=== PATIENT | female | born 1940 | race Two or more races ===

== ENCOUNTER 2017-11-09 11:30 | Inpatient (IN) | payer MEDICARE, OTHER ==
[~2017-11-09] VITALS: Ht 160 cm; Wt 58.8 kg
[2017-11-09 12:29] VITALS: BP 137/71
--- NOTE | 2017-11-09 13:29 | Emergency Room Report ---
History of Present Illness General Chief Complaint: Lower Extremity Injury Source: Patient, Medical Record, EMS ([facility]ing Femi ) Present Illness HPI This patient is brought in from a intermediate facility. I am unsure of the language that she speaks and there is very little history available. Per report , the patient fell and has pain in her hip. The patient has a history of CHF, hypertension, hypothyroid, hyperlipidemia. She is on warfarin. ([facility]) Allergies: Coded Allergies: No Known Allergies (Unverified , 11/09/17) Patient History Past Medical History: see triage record, HTN, RI, CAD, CHF, other - GERD Past Surgical History: pacemaker Social History: Denies: smoking, alcohol use, drug use Now: No Reviewed Nursing Documentation: PMH: Agreed; PSxH: Agreed (Ching Grover Femi PARISH) Nursing Documentation-PMH [facility]: [facility] Review of Systems All Other Systems: limited [facility] Physical Exam Vital Signs Date Time Temp Pulse Resp B/P (MAP) Pulse Ox O2 Delivery O2 Flow Rate FiO2 11/09/17 11:36 100.1 91 18 150/68 95 Room Air 100.0 Sp02 EP Interpretation: reviewed, normal General Appearance: no apparent distress, alert, GCS 15, non-toxic Head: normocephalic, atraumatic Eyes: bilateral eye normal inspection, bilateral eye PERRL ENT: hearing grossly normal, normal pharynx, no angioedema, normal voice Neck: full range of motion, supple/symm/no masses Respiratory: chest non-tender, lungs clear, normal breath sounds, no respiratory distress, no retraction, no accessory muscle use, speaking full sentences Cardiovascular #1: regular rate, rhythm, no edema Gastrointestinal: normal bowel sounds, non tender, soft, non-distended, no guarding, no rebound Rectal: deferred Musculoskeletal: other - unable to fully assess Neurologic: alert, oriented x3, responsive, motor strength/tone normal, sensory intact, speech normal Psychiatric: judgement/insight normal, memory normal, mood/affect normal, no suicidal/homicidal ideation Skin: normal color, no rash, warm/dry, well hydrated (Ching Grover Femi ) Medical Decision Making Diagnostic Impression: Primary Impression: Hip deformity Additional Impressions: Injury of lower extremity Fever Fall Warfarin-induced coagulopathy ER Course This patient presents from a intermediate facility for a fall and hip pain. On evaluation, the patient was found to have a low-grade fever. This was not reported. The patient is a poor historian and I am unable to get any significant history from her. I am concerned for a patient following and being anticoagulated on Coumadin. Patient is pending basic labs to include a CBC, CMP , urinalysis. She is also pending a head CT. Differential diagnosis includes urinary tract infection, bacteremia, viral syndrome, pneumonia, intracranial bleed. There is no evidence of hip fracture on plain films. The patient is turned over to Dr. Hassan for final disposition. Anticipate admission given the fall on Coumadin and low-grade fever. Pending (Ching Grover DO) ER Course Patient was seen by Dr. Alessia Grover and signed out to me for final disposition. I've also evaluated the patient. Please refer to her dictation for full history and physical. Patient apparently had a fall and complaining hip pain. X-rays show some chronic changes and patient's right hip and as well as chronic changes in the left hip. Case was discussed with Dr. Vel Noyola who came to the emergency department see the patient. Patient will be admitted to telemetry for further treatment. Patient was started on antibiotics because of the fever. Labs Test 11/09/17 15:15 11/09/17 16:15 Sodium Level 135 MMOL/L (136-145) Potassium Level 5.4 MMOL/L (3.5-5.1) Chloride Level 105 MMOL/L (98-107) Carbon Dioxide Level 25 MMOL/L (21-32) Anion Gap 5 mmol/L (5-15) Blood Urea Nitrogen 29 mg/dL (7-18) Creatinine 0.6 MG/DL (0.55-1.30) Estimat Glomerular Filtration Rate mL/min (>60) Glucose Level 85 MG/DL (74-106) Lactic Acid Level 0.70 mmol/L (0.4-2.0) Calcium Level 7.2 MG/DL (8.5-10.1) Total Bilirubin 0.7 MG/DL (0.2-1.0) Aspartate Amino Transf (AST/SGOT) 82 U/L (15-37) Alanine Aminotransferase (ALT/SGPT) 24 U/L (12-78) Alkaline Phosphatase 63 U/L (46-116) Total Creatine Kinase 289 U/L (26-308) Creatine Kinase MB 1.5 NG/ML (0.0-3.6) Creatine Kinase MB Relative Index 0.5 Troponin I 0.004 ng/mL (0.000-0.056) Total Protein 6.6 G/DL (6.4-8.2) Albumin 2.6 G/DL (3.4-5.0) Globulin 4.0 g/dL Albumin/Globulin Ratio 0.6 (1.0-2.7) White Blood Count 8.0 K/UL (4.8-10.8) Red Blood Count 4.24 M/UL (4.20-5.40) Hemoglobin 13.8 G/DL (12.0-16.0) Hematocrit 40.5 % (37.0-47.0) Mean Corpuscular Volume 96 FL (80-99) Mean Corpuscular Hemoglobin 32.5 PG (27.0-31.0) Mean Corpuscular Hemoglobin Concent 34.0 G/DL (32.0-36.0) Red Cell Distribution Width 11.1 % (11.6-14.8) Platelet Count 220 K/UL (150-450) Mean Platelet Volume 6.6 FL (6.5-10.1) Neutrophils (%) (Auto) 75.4 % (45.0-75.0) Lymphocytes (%) (Auto) 13.5 % (20.0-45.0) Monocytes (%) (Auto) 7.4 % (1.0-10.0) Eosinophils (%) (Auto) 2.5 % (0.0-3.0) Basophils (%) (Auto) 1.2 % (0.0-2.0) Prothrombin Time 27.1 SEC (9.30-11.50) Prothromb Time International Ratio 2.7 (0.9-1.1) Activated Partial Thromboplast Time 41 SEC (23-33) Urine Color Pale yellow Urine Appearance Clear Urine pH 7 (4.5-8.0) Urine Specific [place] 1.010 (1.005-1.035) Urine Protein Negative (NEGATIVE) Urine Glucose (UA) Negative (NEGATIVE) Urine Ketones Negative (NEGATIVE) Urine Blood 2+ (NEGATIVE) Urine Nitrite Negative (NEGATIVE) Urine Bilirubin Negative (NEGATIVE) Urine Urobilinogen Normal MG/DL (0.0-1.0) Urine Leukocyte Esterase Negative (NEGATIVE) Urine RBC 5-10 /HPF (0 - 2) Urine WBC 0-2 /HPF (0 - 2) Urine Squamous Epithelial Cells Many /LPF (NONE/OCC) Urine Bacteria Few /HPF (NONE) (Rajendra Hassan MD) EKG Diagnostic Results Rate: other - Paced Rhythm: other - Paced ST Segments: no acute changes ([facility]) Rhythm Strip Diag. Results EP Interpretation: yes Rate: 60 Rhythm: no ectopy, other - Paced ([facility]) Chest X-Ray Diagnostic Results Chest X-Ray Diagnostic Results : Chest X-Ray Ordered: Yes # of Views/Limited/Complete: 1 View Indication: Chest Pain EP Interpretation: Yes Interpretation: no consolidation, no effusion, no pneumothorax, no acute cardiopulmonary disease Impression: No acute disease Electronically Signed by: Claritza ([facility]) CT/MRI/US Diagnostic Results CT/MRI/US Diagnostic Results : Imaging Test Ordered: CT head Impression Pending. ([facility]) Last Vital Signs Date Time Temp Pulse Resp B/P (MAP) Pulse Ox O2 Delivery O2 Flow Rate FiO2 11/09/17 11:36 100.1 91 18 150/68 95 Room Air 100.0 ([facility]) Status: improved (Rajendra Hassan MD) Disposition: ADMITTED INPATIENT Condition: Serious Scripts Iscnisscpkou-Ihkc-Ekcloman,Iso (ZOSYN 3.375 GM PRE MIX-BAG) 3.375 Gm/50 Ml Froz.piggy 3.375 GM IVPB EVERY 8 HOURS for 7 Days, BAG Prov: Keith Noyola MD 11/12/17 Acetaminophen With Codeine 300MG/30MG (T#3)* (TYLENOL WITH CODEINE #3 TABLET*) Y Tab 2 TAB ORAL Q6H PRN for 30 Days, TAB Prov: Keith Noyola MD 11/12/17 [facility] Nov 09, 2017 13:29 Rajendra Hassan MD Nov 09, 2017 17:05
[2017-11-09] MEDS ORDERED: Cefepime HCl 1 GM in NS 55 ML IV SCH (13:30)
[2017-11-09 16:12] LABS: ANION GAP 5 mmol/L (5-15); BLOOD UREA NITROGEN 29 mg/dL (7-18); CALCIUM 7.2 MG/DL (8.5-10.1); CARBON DIOXIDE 25 MMOL/L (21-32); CHLORIDE 105 MMOL/L (98-107); CREATININE 0.6 MG/DL (0.55-1.30); POTASSIUM 5.4 MMOL/L (3.5-5.1); SODIUM 135 MMOL/L (136-145)
[2017-11-09 16:17] LABS: ALANINE AMINOTRANSFERASE 24 U/L (12-78); ALBUMIN 2.6 G/DL (3.4-5.0); ALBUMIN/GLOBULIN RATIO 0.6 (1.0-2.7); ALKALINE PHOSPHATASE 63 U/L (46-116); ASPARTATE AMINO TRANSFERASE 82 U/L (15-37); BILIRUBIN,TOTAL 0.7 MG/DL (0.2-1.0); CKMB 1.5 NG/ML (0.0-3.6); CREATINE KINASE 289 U/L (26-308)
[2017-11-09] MEDS ORDERED: DIGOXIN125 MCG ORAL (16:31)
[2017-11-09] MEDS ORDERED: BENADRYL25 MG ORAL (16:31)
[2017-11-09] MEDS ORDERED: LUMIGAN2.5 ML BOTH EYES (16:31)
[2017-11-09] MEDS ORDERED: POTASSIUM 25 M25 ME1 PO (16:31)
[2017-11-09] MEDS ORDERED: TRAMADOL HCL50 MG ORAL (16:31)
[2017-11-09] MEDS ORDERED: PREMARIN0.625 MG VAGIN (16:31)
[2017-11-09] MEDS ORDERED: ISTALOL2.5 M1 OP (16:31)
[2017-11-09] MEDS ORDERED: FUROSEMIDE40 MG ORAL (16:31)
[2017-11-09] MEDS ORDERED: CRESTOR10 M2 ORAL (16:31)
[2017-11-09] MEDS ORDERED: CALTRATE 600 +1 EAC2 PO (16:31)
[2017-11-09] MEDS ORDERED: DOK PLUS TABLE1 EACH PO (16:31)
[2017-11-09] MEDS ORDERED: GABAPENTIN300 MG ORAL (16:31)
[2017-11-09] MEDS ORDERED: FUROSEMIDE20 M1 ORAL (16:31)
[2017-11-09] MEDS ORDERED: NEXIUM40 MG ORAL (16:31)
[2017-11-09] MEDS ORDERED: LEVOTHYROXINE75 MCG ORAL (16:31)
[2017-11-09] MEDS ORDERED: VASCEPA1 GM PO (16:31)
[2017-11-09] MEDS ORDERED: AMLODIPINE BESYL5 MG ORAL (16:31)
[2017-11-09] MEDS ORDERED: FISH OIL CAP1000 MG ORAL (16:31)
[2017-11-09] MEDS ORDERED: WARFARIN SODIUM5 MG ORAL (16:31)
[2017-11-09] MEDS ORDERED: METOPROLOL SUCC50 MG ORAL (16:31)
[2017-11-09 16:38] LABS: APPEARANCE,URINE CLEAR; BILIRUBIN, URINE NEGATIVE (NEGATIVE); COLOR,URINE PALE YELLOW; GLUCOSE, URINE (UA) NEGATIVE (NEGATIVE); KETONES,URINE NEGATIVE (NEGATIVE); LEUKOCYTE ESTERASE ,URINE NEGATIVE (NEGATIVE); NITRITE,URINE NEGATIVE (NEGATIVE); PH,URINE 7 (4.5-8.0); PROTEIN,URINE NEGATIVE (NEGATIVE); UROBILINOGEN,URINE NORMAL MG/DL (0.0-1.0)
[2017-11-09 16:40] LABS: BASOPHILS % (AUTO) 1.2 % (0.0-2.0); EOSINOPHILS % (AUTO) 2.5 % (0.0-3.0); HEMATOCRIT 40.5 % (37.0-47.0); HEMOGLOBIN 13.8 G/DL (12.0-16.0); LYMPHOCYTES % (AUTO) 13.5 % (20.0-45.0); MEAN CORPUSCULAR VOLUME 96 FL (80-99); MONOCYTES % (AUTO) 7.4 % (1.0-10.0); NEUTROPHILS % (AUTO) 75.4 % (45.0-75.0); PLATELET COUNT 220 K/UL (150-450); RED BLOOD COUNT 4.24 M/UL (4.20-5.40); RED CELL DISTRIBUTION WIDTH 11.1 % (11.6-14.8)
[2017-11-09 16:45] LABS: INR 2.7 (0.9-1.1)
--- NOTE | 2017-11-09 16:59 | Diagnostic Imaging Report ---
Indication: Chest pain Technique: One view of the chest Comparison: none Findings: The heart is enlarged. There is questionably mild hazy opacity in the right mid and lower lung periphery, although this could be an artifact of overlying soft tissue. The pleural spaces are clear. Left chest unifocal pacemaker is noted. Metallic density projects over the left medial hemidiaphragm, of uncertain etiology/significance. There appears to be a gastrostomy. Impression: Questionable hazy right lateral basilar infiltrate. Cardiomegaly. Other findings as noted
--- NOTE | 2017-11-09 17:16 | Diagnostic Imaging Report ---
Indication: Fall, trauma, hip pain, inability to walk Technique: One view of the pelvis Comparison: Left hip radiograph of earlier the same day Findings: Again demonstrated is markedly abnormal left hip joint, with widened dysplastic acetabulum, severely narrowed joint space, markedly flattened and proliferative femoral head, extensive subchondral sclerosis and subchondral cyst formation. On the right, there is complete absence of the femoral head, with sharp margins of the femoral neck. The proximal femur rides well above the [place] acetabulum. The [place] acetabulum is very shallow and dysplastic in appearance. There is questionably a pseudoacetabulum. If this is in fact a pseudoacetabulum, the femoral neck is dislocated superiorly from it. No definite acute fractures. There are degenerative changes of the lumbosacral junction. The bones are osteoporotic. 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 There is a questionable pseudoacetabulum above the [place] acetabulum, but the femoral neck does not articulate with it. 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
--- NOTE | 2017-11-09 17:28 | Diagnostic Imaging Report ---
Indication: Reason For Exam: PAIN Technique: 3 views of the left ankle Comparison: none Findings: The bones are osteoporotic. No acute fractures. No dislocations. The joint spaces are preserved. Impression: No acute bony trauma Osteoporosis
--- NOTE | 2017-11-09 17:41 | Diagnostic Imaging Report ---
Indication: Left hip pain Technique: 2 views of the left hip Comparison: none Findings: There is severe contour abnormality of the left acetabulum and left hip. There is widening of the acetabulum and elevation of the left acetabular margin, marked flattening and proliferative change of the femoral head. There is near complete obliteration of the hip joint space. No definite acute fractures. No dislocations. Unusual ovoid density projects in the pelvis. Impression: No definite acute bony trauma Markedly abnormal left hip joint, as described. Suspect on the basis of prior avascular necrosis with secondary degenerative change and severe degenerative remodeling. Unusual ovoid density projecting within or over the pelvis, etiology/significance uncertain. Probably not sufficiently dense to be a bladder calculus. Could possibly represent a pessary although is higher than would be expected
--- NOTE | 2017-11-09 17:51 | Infectious Diseases Prog Note ---
Assessment/Plan Problems: (1) RLL pneumonia Assessment & Plan: with fever and infiltrates on CXR, will send sputum culture and start zosyn empirically (2) Left hip pain Assessment & Plan: due to severe DJD , continue pain meds (3) Fever Assessment & Plan: due to the above , continue antibiotics and tylenol Subjective Allergies: Coded Allergies: No Known Allergies (Unverified , 11/09/17) Objective Vital Signs Last 24 Hour Vital Signs Date Time Temp Pulse Resp B/P (MAP) Pulse Ox O2 Delivery O2 Flow Rate FiO2 11/09/17 14:20 97.9 97.9 11/09/17 12:29 97.9 60 16 137/71 95 Room Air 97.9 11/09/17 11:36 100.1 91 18 150/68 95 Room Air 100.0 Height (Feet): 5 Height (Inches): 3.00 Weight (Pounds): 180 Laboratory Tests Test 11/09/17 15:15 11/09/17 16:15 Sodium Level 135 MMOL/L (136-145) L Potassium Level 5.4 MMOL/L (3.5-5.1) H Chloride Level 105 MMOL/L (98-107) Carbon Dioxide Level 25 MMOL/L (21-32) Anion Gap 5 mmol/L (5-15) Blood Urea Nitrogen 29 mg/dL (7-18) H Creatinine 0.6 MG/DL (0.55-1.30) Estimat Glomerular Filtration Rate mL/min (>60) Glucose Level 85 MG/DL (74-106) Lactic Acid Level 0.70 mmol/L (0.4-2.0) Calcium Level 7.2 MG/DL (8.5-10.1) L Total Bilirubin 0.7 MG/DL (0.2-1.0) Aspartate Amino Transf (AST/SGOT) 82 U/L (15-37) H Alanine Aminotransferase (ALT/SGPT) 24 U/L (12-78) Alkaline Phosphatase 63 U/L (46-116) Total Creatine Kinase 289 U/L (26-308) Creatine Kinase MB 1.5 NG/ML (0.0-3.6) Creatine Kinase MB Relative Index 0.5 Troponin I 0.004 ng/mL (0.000-0.056) Total Protein 6.6 G/DL (6.4-8.2) Albumin 2.6 G/DL (3.4-5.0) L Globulin 4.0 g/dL Albumin/Globulin Ratio 0.6 (1.0-2.7) L White Blood Count 8.0 K/UL (4.8-10.8) Red Blood Count 4.24 M/UL (4.20-5.40) Hemoglobin 13.8 G/DL (12.0-16.0) Hematocrit 40.5 % (37.0-47.0) Mean Corpuscular Volume 96 FL (80-99) Mean Corpuscular Hemoglobin 32.5 PG (27.0-31.0) H Mean Corpuscular Hemoglobin Concent 34.0 G/DL (32.0-36.0) Red Cell Distribution Width 11.1 % (11.6-14.8) L Platelet Count 220 K/UL (150-450) Mean Platelet Volume 6.6 FL (6.5-10.1) Neutrophils (%) (Auto) 75.4 % (45.0-75.0) H Lymphocytes (%) (Auto) 13.5 % (20.0-45.0) L Monocytes (%) (Auto) 7.4 % (1.0-10.0) Eosinophils (%) (Auto) 2.5 % (0.0-3.0) Basophils (%) (Auto) 1.2 % (0.0-2.0) Prothrombin Time 27.1 SEC (9.30-11.50) H Prothromb Time International Ratio 2.7 (0.9-1.1) H Activated Partial Thromboplast Time 41 SEC (23-33) H Urine Color Pale yellow Urine Appearance Clear Urine pH 7 (4.5-8.0) Urine Specific [place] 1.010 (1.005-1.035) Urine Protein Negative (NEGATIVE) Urine Glucose (UA) Negative (NEGATIVE) Urine Ketones Negative (NEGATIVE) Urine Blood 2+ (NEGATIVE) H Urine Nitrite Negative (NEGATIVE) Urine Bilirubin Negative (NEGATIVE) Urine Urobilinogen Normal MG/DL (0.0-1.0) Urine Leukocyte Esterase Negative (NEGATIVE) Urine RBC 5-10 /HPF (0 - 2) H Urine WBC 0-2 /HPF (0 - 2) Urine Squamous Epithelial Cells Many /LPF (NONE/OCC) H Urine Bacteria Few /HPF (NONE) Current Medications Medications (Trade) Dose Ordered Sig/Jorge Luis Route PRN Reason Start Time Stop Time Status Last Admin Dose Admin Cefepime HCl 1 gm/ Sodium Chloride 55 ml @ 110 mls/hr Q12H IV 11/09/17 13:30 11/10/17 13:29 11/09/17 13:39 Ney Hall M.D. Nov 09, 2017 17:51
[2017-11-09] MEDS ORDERED: DOCUSATE SODIU250 MG ORAL (18:32)
[2017-11-09] MEDS ORDERED: GABAPENTIN100 MG ORAL (18:32)
[2017-11-09] MEDS ORDERED: MAGNESIUM OXID500 M1 PO (18:32)
[2017-11-09] MEDS ORDERED: WARFARIN SODIUM1 MG ORAL (18:32)
[2017-11-09] MEDS ORDERED: MYRBETRIQ25 MG PO (18:32)
[2017-11-09] MEDS ORDERED: CRESTOR10 M1 ORAL (18:32)
[2017-11-09] MEDS ORDERED: ACETAMINOPHEN500 M5 PO (18:32)
[2017-11-09] MEDS ORDERED: PREMARIN42.5 GM VG (18:32)
[2017-11-09] MEDS ORDERED: POTASSIUM CHLO20 ME3 PO (18:32)
[2017-11-09 19:00] VITALS: BP 149/66
[2017-11-09 20:00] VITALS: BP 145/78
[2017-11-09] MEDS: Piperacillin/Tazobactam 3.375 GM in D5W 110 ML IVPB SCH (22:11)
[2017-11-10] MEDS ORDERED: traMADol 50mg tab ORAL PRN (00:15)
[2017-11-10] MEDS ORDERED: Acetaminophen 500mg (ES) tab ORAL PRN (00:15)
[2017-11-10] MEDS: Piperacillin/Tazobactam 3.375 GM in D5W 110 ML IVPB SCH ×3 (06:41→22:07)
[2017-11-10 07:01] LABS: BASOPHILS % (AUTO) 1.3 % (0.0-2.0); EOSINOPHILS % (AUTO) 2.6 % (0.0-3.0); HEMATOCRIT 39.2 % (37.0-47.0); HEMOGLOBIN 13.1 G/DL (12.0-16.0); LYMPHOCYTES % (AUTO) 16.3 % (20.0-45.0); MEAN CORPUSCULAR VOLUME 93 FL (80-99); MONOCYTES % (AUTO) 9.2 % (1.0-10.0); NEUTROPHILS % (AUTO) 70.5 % (45.0-75.0); PLATELET COUNT 207 K/UL (150-450); RED BLOOD COUNT 4.24 M/UL (4.20-5.40); RED CELL DISTRIBUTION WIDTH 10.8 % (11.6-14.8); WHITE BLOOD COUNT 5.3 K/UL (4.8-10.8)
[2017-11-10 07:06] LABS: INR 2.8 (0.9-1.1)
[2017-11-10 07:27] LABS: ANION GAP 7 mmol/L (5-15); BLOOD UREA NITROGEN 22 mg/dL (7-18); CALCIUM 8.8 MG/DL (8.5-10.1); CARBON DIOXIDE 29 MMOL/L (21-32); CHLORIDE 101 MMOL/L (98-107); CREATININE 0.8 MG/DL (0.55-1.30); POTASSIUM 3.7 MMOL/L (3.5-5.1); SODIUM 137 MMOL/L (136-145)
[2017-11-10 08:00] VITALS: BP 138/62
[2017-11-10] MEDS ORDERED: WARFARIN SODIUM5 MG ORAL ×2 (08:21)
--- NOTE | 2017-11-10 08:22 | Consultation ---
Consult Note Consult Note 77 yo farsi speaking pt who, per history, fell at her nursing facility and complained of left hip pain. Pt seen in bed on her way to CT scan of hips/pelvis. hx gathered from chart and nursing staff. Pt does have pain in left hip upon palpation and demonstrated radiation of pain to left femur/leg. Xray reviewed: Rt hip prior Girdlestone procedure. left hip with significant abnormality, shallow acetabulum and flattened femoral head with marked degenerative changes. fx difficult to r/o Assessment/Plan Rec obtaining hip/pelvis CT. Being done now. Will follow up. Niki Blanc Nov 10, 2017 08:22
--- NOTE | 2017-11-10 08:29 | Diagnostic Imaging Report ---
Indication: Head pain, status post fall Technique: spiral acquisitions obtained through the brain. Angled axial and coronal 5 x 5 mm slices were reconstructed. No IV contrast utilized. Radiation dose was minimized using automated exposure control Total dose length product 1354.97 mGycm. CTDIvol(s) 70.38 mGy Comparison: none FINDINGS: No acute hemorrhage or edema. No mass effect or midline shift. There is age-related enlargement of the ventricles and extra axial CSF spaces. There is periventricular deep white matter ischemic change. Normal lin-white differentiation. There is evidence of prior bilateral cataract surgery. Visualized sinuses are unremarkable. Intact calvarium. IMPRESSION: Chronic and age-related changes. Negative for acute intracranial bleed or mass effect This agrees with the preliminary interpretation provided overnight by Dr. Paulson The CT scanner at [facility] is accredited by the [employer] and the scans are performed using protocols designed to limit radiation exposure to as low as reasonably achievable to attain images of sufficient resolution adequate for diagnostic evaluation
[2017-11-10] MEDS ORDERED: Warfarin Sodium 5mg ORAL SCH (09:00)
[2017-11-10] MEDS: Metoprolol Succinate XL 50mg tab ORAL SCH (09:00)
[2017-11-10] MEDS ORDERED: Warfarin Sodium 1mg ORAL SCH (09:00)
[2017-11-10] MEDS: Digoxin 0.125mg tab ORAL SCH ×2 (09:00→09:15)
[2017-11-10] MEDS: Atorvastatin 20mg tab ORAL SCH (09:14)
[2017-11-10] MEDS: Magnesium Oxide 400mg tab ORAL SCH (09:15)
[2017-11-10] MEDS: Furosemide 40mg tab ORAL SCH (09:15)
[2017-11-10] MEDS: Docusate 250mg cap ORAL SCH (09:15)
[2017-11-10] MEDS: Calcium Carbonate 500mg w/Vit D 200iu tab PO SCH (09:15)
[2017-11-10] MEDS: Timolol 0.5% Op Soln 2.5ml BOTH EYES SCH (09:27)
--- NOTE | 2017-11-10 09:52 | Diagnostic Imaging Report ---
Indication: Pelvic pain, difficulty walking, status post fall Technique: No IV contrast, per trauma protocol Spiral acquisitions obtained through the Multiplanar reconstructions were generated. Total dose length product 375.72 mGycm. CTDIvol(s) 15.42 mGy. Radiation dose was minimized using automated exposure control Comparison: Plain radiographs taken earlier the same day Findings: There is evidence of prior surgical resection of the femoral head. Resection margins of the femoral neck appear clean. The proximal femur is displaced nearly 6 cm cephalad to the normal acetabulum, as demonstrated on prior radiograph. It is also posteriorly displaced. The [place] acetabulum is very small and dysplastic, demonstrates irregularities that are probably sales representative aircraft of old subchondral cysts at the upper periphery. What was thought to possibly represent a pseudoacetabulum on the plain radiographs, just above the normal acetabulum, is not evident as such on this exam. There is a very unusual area of near absence of bone, with a very thin strip of bone through the center of it, in the upper iliac bone. This is not visible as such on the plain radiograph. The femoral neck is near to this, approximately 2 cm remote from the and slightly inferior to it, but does not appear to frankly articulate with it. The residual right femur is intact. No right-sided pelvic fracture demonstrated. There is proliferative soft tissue seen surrounding the femoral neck. There is mild thickening of the lateral gluteal musculature overlying the greater trochanter, which could represent a component of contusion. This is asymmetric compared to the contralateral side. There is atrophy of the bilateral buttock musculature which is asymmetric on the right. There is some increased attenuation of the musculature medial to the proximal femoral shaft which could also indicate contusion. As demonstrated on the prior radiograph, there is marked abnormality of the left hip joint. There is complete obliteration of the joint space, and subchondral sclerosis and subchondral cysts on both sides of the joint space. There is marked dysplasia of the acetabulum, which is widened to nearly twice width of a normal acetabulum, and the main negative femoral head is subluxed into the superior aspect of the remodeled acetabulum, with a significant portion subluxed outside the acetabulum. There is extensive bony proliferation, with extensive bone inferior to the femoral head articulating with the lower portion of the acetabulum. There is extensive degenerative osteophytes on both sides of the hip joint. No left femoral or left pelvic fracture demonstrated. The sacrum is intact. Sacroiliac joint spaces are preserved. There are degenerative changes of the lumbosacral junction. A pessary is located within the vagina. It appears to be malpositioned, as the stem bases inferiorly into the left parallel to the coronal plane rather than the sagittal plane, and the cup is oriented obliquely in the right side of the vaginal vault. Anterior edge of the pessary indents the bladder floor. The uterus is not visualized, presumed surgically absent. The remaining pelvic viscera are unremarkable. Impression: Evidence of prior right femoral Girdlestone type procedure, with marked cephalad displacement of the femoral neck. No right femoral or pelvic fracture is evident. Given the abnormal postsurgical anatomy, uncertain as to whether the current anatomic alignment is baseline for this patient or not. However, the surrounding soft tissues do not appear to be particularly distorted, so suspect that it is located in his baseline position. Unusual defect of the right iliac bone with a thin strip of bone filling the defect. Suspect that this represents postsurgical anatomy, although it is possible that this represents a pseudoacetabulum Markedly dysplastic right [place] acetabulum, as described. Thickening of the lateral and medial musculature overlying the femoral neck and proximal femur, could indicate contusion Markedly abnormal left femoral head and acetabulum. 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 Alternatively, given the presence of bone articulating within the more normally located inferior aspect of the acetabulum, this could represent an old healed slipped capital femoral epiphysis degenerative change or healed displaced femoral head fracture with secondary degenerative change. No evidence of acute bony trauma Pessary within the vaginal vault, appears malpositioned, corresponds to density described on recent plain radiograph Evidence of prior hysterectomy The CT scanner at [facility] is accredited by the [employer] and the scans are performed using protocols designed to limit radiation exposure to as low as reasonably achievable to attain images of sufficient resolution adequate for diagnostic evaluation.
[2017-11-10 12:00] VITALS: BP 142/71
--- NOTE | 2017-11-10 13:22 | Consultation ---
Consult Note Consult Note Ortho f/u CT scan reviewed. No fracture or acute bony trauma. No surgery needed. Rec pain control, PT Niki Blanc Nov 10, 2017 13:22
--- NOTE | 2017-11-10 13:33 | Cardiology Report ---
APPROVED REPORT EXAM: Two-dimensional and M-mode echocardiogram with Doppler and color Doppler. INDICATION Congestive Heart Failure M-Mode DIMENSIONS IVSd0.9 (0.7-1.1cm)Left Atrium (MM)3.9 (1.6-4.0cm) LVDd4.4 (3.5-5.6cm)Aortic Root3.0 (2.0-3.7cm) PWd1.0 (0.7-1.1cm)Aortic Cusp Exc.1.7 (1.5-2.0cm) IVSs1.2 cm LVDs3.0 (2.5-4.0cm) PWs1.6 cm Normal left ventricular chamber size,borderline normal systolic function and wall motion . Left ventricular ejection fraction estimated to be 50-55%. No evidence of left ventricular hypertrophy . No evidence of pericardial effusion. All other cardiac chamber sizes are within normal limits. Focal aortic valve sclerosis with adequate cusp excursion. Thickened mitral valve leaflets with normal excursion. Mitral annulus and aortic root calcification. Pulmonic valve not well visualized. Normal tricuspid valve structure. IVC at size 1.9cm with physiologic collapse. Pacemaker wire present in the right side chambers. A color flow and spectral Doppler study was performed and revealed: No aortic insufficiency . Mild mitral regurgitation. Mitral inflow velocities non diagnostic Mild tricuspid regurgitation. Tricuspid systolic velocities suggests peak right ventricular systolic pressure of 41mmHg,consistent with mild pulmonary hypertension .
--- NOTE | 2017-11-10 15:02 | Infectious Diseases Prog Note ---
Assessment/Plan Problems: (1) RLL pneumonia Assessment & Plan: with fever and infiltrates on CXR, await sputum culture , continue zosyn empirically for now (2) Left hip pain Assessment & Plan: due to severe DJD , continue pain meds , PT/OT eval (3) Fever Assessment & Plan: due to the above , continue antibiotics and tylenol Subjective Constitutional: Reports: no symptoms HEENT: Reports: no symptoms Respiratory: Reports: dry cough Breasts: Reports: no symptoms Cardiovascular: Reports: no symptoms Gastrointestinal/Abdominal: Reports: no symptoms Genitourinary: Reports: no symptoms Neurologic: Reports: no symptoms Psychiatric: Reports: no symptoms Skin: Reports: no symptoms Endocrine: Reports: no symptoms Hematologic: Reports: no symptoms Musculoskeletal: Reports: pain, stiffness Allergies: Coded Allergies: No Known Allergies (Unverified , 11/09/17) Subjective she is more awake and comfortable Objective Vital Signs Last 24 Hour Vital Signs Date Time Temp Pulse Resp B/P (MAP) Pulse Ox O2 Delivery O2 Flow Rate FiO2 11/10/17 12:00 61 11/10/17 09:15 60 138/62 11/10/17 09:00 59 11/10/17 09:00 Room Air 11/10/17 08:00 97.5 60 19 138/62 (87) 93 97.5 11/10/17 08:00 60 11/10/17 04:00 61 11/10/17 00:00 60 11/09/17 20:00 96.1 61 18 145/78 (100) 93 96.1 11/09/17 20:00 Room Air 11/09/17 20:00 60 11/09/17 19:00 97.5 60 16 149/66 97 Room Air 11/09/17 19:00 97.5 60 16 149/66 97 Room Air 97.5 Height (Feet): 5 Height (Inches): 3.00 Weight (Pounds): 129 General Appearance: WD/WN, no acute distress HEENT: normocephalic, atraumatic, anicteric, mucous membranes moist, PERRL Respiratory/Chest: chest wall non-tender, lungs clear, normal breath sounds, no respiratory distress, no accessory muscle use Cardiovascular: normal peripheral pulses, normal rate, regular rhythm, no gallop/murmur, no JVD Abdomen: normal bowel sounds, soft, non tender, no organomegaly, non distended , no mass, no scars Genitourinary: normal external genitalia Extremities: no cyanosis, no clubbing Skin: no rash, no lesions, no ulcers Neurologic/Psychiatric: alert, oriented x 3, responsive Lymphatic: no neck adenopathy, no groin adenopathy Musculoskeletal: other - left hip and leg pain Microbiology Date/Time Source Procedure Growth Status 11/09/17 23:30 Rectum Received Laboratory Tests Test 11/09/17 15:15 11/09/17 16:15 11/10/17 06:20 Sodium Level 135 MMOL/L (136-145) L 137 MMOL/L (136-145) Potassium Level 5.4 MMOL/L (3.5-5.1) H 3.7 MMOL/L (3.5-5.1) Chloride Level 105 MMOL/L (98-107) 101 MMOL/L (98-107) Carbon Dioxide Level 25 MMOL/L (21-32) 29 MMOL/L (21-32) Anion Gap 5 mmol/L (5-15) 7 mmol/L (5-15) Blood Urea Nitrogen 29 mg/dL (7-18) H 22 mg/dL (7-18) H Creatinine 0.6 MG/DL (0.55-1.30) 0.8 MG/DL (0.55-1.30) Estimat Glomerular Filtration Rate mL/min (>60) mL/min (>60) Glucose Level 85 MG/DL (74-106) 89 MG/DL (74-106) Lactic Acid Level 0.70 mmol/L (0.4-2.0) Calcium Level 7.2 MG/DL (8.5-10.1) L 8.8 MG/DL (8.5-10.1) # Total Bilirubin 0.7 MG/DL (0.2-1.0) Aspartate Amino Transf (AST/SGOT) 82 U/L (15-37) H Alanine Aminotransferase (ALT/SGPT) 24 U/L (12-78) Alkaline Phosphatase 63 U/L (46-116) Total Creatine Kinase 289 U/L (26-308) Creatine Kinase MB 1.5 NG/ML (0.0-3.6) Creatine Kinase MB Relative Index 0.5 Troponin I 0.004 ng/mL (0.000-0.056) Total Protein 6.6 G/DL (6.4-8.2) Albumin 2.6 G/DL (3.4-5.0) L Globulin 4.0 g/dL Albumin/Globulin Ratio 0.6 (1.0-2.7) L White Blood Count 8.0 K/UL (4.8-10.8) 5.3 K/UL (4.8-10.8) Red Blood Count 4.24 M/UL (4.20-5.40) 4.24 M/UL (4.20-5.40) Hemoglobin 13.8 G/DL (12.0-16.0) 13.1 G/DL (12.0-16.0) Hematocrit 40.5 % (37.0-47.0) 39.2 % (37.0-47.0) Mean Corpuscular Volume 96 FL (80-99) 93 FL (80-99) Mean Corpuscular Hemoglobin 32.5 PG (27.0-31.0) H 30.9 PG (27.0-31.0) Mean Corpuscular Hemoglobin Concent 34.0 G/DL (32.0-36.0) 33.4 G/DL (32.0-36.0) Red Cell Distribution Width 11.1 % (11.6-14.8) L 10.8 % (11.6-14.8) L Platelet Count 220 K/UL (150-450) 207 K/UL (150-450) Mean Platelet Volume 6.6 FL (6.5-10.1) 7.5 FL (6.5-10.1) Neutrophils (%) (Auto) 75.4 % (45.0-75.0) H 70.5 % (45.0-75.0) Lymphocytes (%) (Auto) 13.5 % (20.0-45.0) L 16.3 % (20.0-45.0) L Monocytes (%) (Auto) 7.4 % (1.0-10.0) 9.2 % (1.0-10.0) Eosinophils (%) (Auto) 2.5 % (0.0-3.0) 2.6 % (0.0-3.0) Basophils (%) (Auto) 1.2 % (0.0-2.0) 1.3 % (0.0-2.0) Prothrombin Time 27.1 SEC (9.30-11.50) H 28.3 SEC (9.30-11.50) H Prothromb Time International Ratio 2.7 (0.9-1.1) H 2.8 (0.9-1.1) H Activated Partial Thromboplast Time 41 SEC (23-33) H Urine Color Pale yellow Urine Appearance Clear Urine pH 7 (4.5-8.0) Urine Specific [place] 1.010 (1.005-1.035) Urine Protein Negative (NEGATIVE) Urine Glucose (UA) Negative (NEGATIVE) Urine Ketones Negative (NEGATIVE) Urine Blood 2+ (NEGATIVE) H Urine Nitrite Negative (NEGATIVE) Urine Bilirubin Negative (NEGATIVE) Urine Urobilinogen Normal MG/DL (0.0-1.0) Urine Leukocyte Esterase Negative (NEGATIVE) Urine RBC 5-10 /HPF (0 - 2) H Urine WBC 0-2 /HPF (0 - 2) Urine Squamous Epithelial Cells Many /LPF (NONE/OCC) H Urine Bacteria Few /HPF (NONE) Digoxin Level 1.3 NG/ML (0.9-2.0) Current Medications Medications (Trade) Dose Ordered Sig/Jorge Luis Route PRN Reason Start Time Stop Time Status Last Admin Dose Admin Acetaminophen (Tylenol) 500 mg Q6H PRN ORAL Mild Pain/Temp > 100.5 11/10/17 00:15 12/10/17 00:14 Amlodipine Besylate (Norvasc) 5 mg DAILY ORAL 11/10/17 09:00 12/10/17 08:59 11/10/17 09:15 Atorvastatin Calcium (Lipitor) 20 mg DAILY ORAL 11/10/17 09:00 12/10/17 08:59 11/10/17 09:14 Calcium Carbonate (OsCal D) 1 tab DAILY PO 11/10/17 09:00 12/10/17 08:59 11/10/17 09:15 Digoxin (Lanoxin) 0.125 mg DAILY ORAL 11/10/17 09:00 12/10/17 08:59 Docusate Sodium (Colace) 250 mg DAILY ORAL 11/10/17 09:00 12/10/17 08:59 11/10/17 09:15 Fish Oil (Fish Oil) 1,000 mg BID ORAL 11/10/17 09:00 12/10/17 08:59 11/10/17 09:14 Furosemide (Lasix) 20 mg QHS ORAL 11/10/17 02:00 12/10/17 01:59 11/10/17 01:37 Furosemide (Lasix) 40 mg DAILY ORAL 11/10/17 09:00 12/10/17 08:59 11/10/17 09:15 Gabapentin (Neurontin) 100 mg QHS ORAL 11/10/17 21:00 12/10/17 20:59 Gabapentin (Neurontin) 300 mg THREE TIMES A DAY ORAL 11/10/17 09:00 12/10/17 08:59 11/10/17 13:43 Latanoprost (Xalatan) 1 drop BEDTIME BOTH EYES 11/10/17 21:00 12/10/17 20:59 Levothyroxine Sodium (Synthroid) 88 mcg DAILY@0630 ORAL 11/10/17 06:30 12/10/17 06:29 11/10/17 06:58 Magnesium Oxide (Mag-Ox 400mg) 400 mg DAILY ORAL 11/10/17 09:00 12/10/17 08:59 11/10/17 09:15 Metoprolol Succinate (Toprol XL) 50 mg DAILY ORAL 11/10/17 09:00 12/10/17 08:59 Pantoprazole (Protonix) 40 mg DAILY ORAL 11/10/17 09:00 12/10/17 08:59 11/10/17 09:15 Piperacillin Sod/ Tazobactam Sod 3.375 gm/Dextrose 110 ml @ 27.5 mls/hr EVERY 8 HOURS IVPB 11/09/17 22:00 11/14/17 21:59 11/10/17 13:43 Potassium Chloride (K-Dur) 20 meq DAILY ORAL 11/10/17 09:00 12/10/17 08:59 11/10/17 09:14 Timolol Maleate (Timoptic 0.5% Op Soln) 1 drop DAILY BOTH EYES 11/10/17 09:00 12/10/17 08:59 11/10/17 09:27 Tramadol HCl (Ultram) 50 mg Q8H PRN ORAL For Pain 11/10/17 00:15 11/17/17 00:14 Warfarin Sodium (Coumadin per pharmacy) 1 ea DAILY PRN MISC Per rx protocol 11/10/17 01:15 12/10/17 01:14 Warfarin Sodium (Coumadin) 5 mg COUMADIN ONCE ORAL 11/10/17 17:00 11/10/17 17:01 Ney Hall M.D. Nov 10, 2017 15:01
--- NOTE | 2017-11-10 16:10 | Diagnostic Imaging Report ---
APPROVED REPORT CPT Code: 77782 Present Symptoms Comments: PAIN Hx of right Hip surgery RIGHT LEG: Venous imaging reveals recanalized chronic thrombus in the superficial femoral vein. Large collateral vein noted anterior to the superficial femoral artery. The remainder of the deep venous system is within normal limits. There is no evidence of thrombus in the common femoral, popliteal or calf veins. The greater saphenous vein is also within normal limits. Doppler indicates normal spontaneous flow within these segments. LEFT LEG: Venous imaging reveals a patent deep venous system. There is no evidence of thrombus within the femoral, popliteal or tibial segments. The greater saphenous vein is also within normal limits. Doppler indicates normal spontaneous flow within these segments. There is no evidence of acute deep vein thrombosis.
--- NOTE | 2017-11-10 16:54 | General Progress Note ---
Assessment/Plan Status: stable Assessment/Plan 1. bilateral hip pain - increase tylenol # 3 two po q 8 hrs prn. 2. pneumonia - cont IV abx. 3. HTN - cont norvasc 5 mg daily and toprol XL 50 mg daily. 4. CHF - on dig 125 mcg daily and lasix 20 mg q am and 40 mg q pm 5. A fib - cont coumadin. no acute DVT by u/s 6. HLD - cont crestor 5 mg one po qhs. 7. Neuropathy - stable. 8. Hypothyroidism - cont levothyroxine 0.88 mg daily 9. Generalized weakness - start PT and OT eval and txt. Subjective Date patient seen: Nov 10, 2017 Time patient seen: 04:00 Constitutional: Reports: weakness HEENT: Reports: no symptoms Cardiovascular: Reports: no symptoms Respiratory: Reports: no symptoms Gastrointestinal/Abdominal: Reports: no symptoms Genitourinary: Reports: no symptoms Neurologic/Psychiatric: Reports: no symptoms Endocrine: Reports: no symptoms Hematologic/Lymphatic: Reports: no symptoms Allergies: Coded Allergies: No Known Allergies (Unverified , 11/09/17) Subjective Patient c/o pain over her both hips. ortho saw her and no surgical intervention is needed. afebrile today. Objective Last 24 Hour Vital Signs Date Time Temp Pulse Resp B/P (MAP) Pulse Ox O2 Delivery O2 Flow Rate FiO2 11/10/17 16:00 62 11/10/17 12:00 97.7 60 20 142/71 (94) 97 97.7 11/10/17 12:00 61 11/10/17 09:15 60 138/62 11/10/17 09:00 59 11/10/17 09:00 Room Air 11/10/17 08:00 97.5 60 19 138/62 (87) 93 97.5 11/10/17 08:00 60 11/10/17 04:00 61 11/10/17 00:00 60 11/09/17 20:00 96.1 61 18 145/78 (100) 93 96.1 11/09/17 20:00 Room Air 11/09/17 20:00 60 11/09/17 19:00 97.5 60 16 149/66 97 Room Air 11/09/17 19:00 97.5 60 16 149/66 97 Room Air 97.5 Intake and Output 11/09/17 11/10/17 19:00 07:00 Intake Total 2455 ml Output Total 0 ml Balance 2455 ml Intake Oral 0 ml IV Total 2455 ml Output Urine Total 0 ml # Voids 3 Laboratory Tests 11/10/17 06:20: White Blood Count 5.3, Red Blood Count 4.24, Hemoglobin 13.1, Hematocrit 39.2, Mean Corpuscular Volume 93, Mean Corpuscular Hemoglobin 30.9, Mean Corpuscular Hemoglobin Concent 33.4, Red Cell Distribution Width 10.8L, Platelet Count 207, Mean Platelet Volume 7.5, Neutrophils (%) (Auto) 70.5, Lymphocytes (%) (Auto) 16.3L, Monocytes (%) (Auto) 9.2, Eosinophils (%) (Auto) 2.6, Basophils (%) (Auto ) 1.3, Prothrombin Time 28.3H, Prothromb Time International Ratio 2.8H, Sodium Level 137, Potassium Level 3.7, Chloride Level 101, Carbon Dioxide Level 29, Anion Gap 7, Blood Urea Nitrogen 22H, Creatinine 0.8, Estimat Glomerular Filtration Rate , Glucose Level 89, Calcium Level 8.8#, Digoxin Level 1.3 Height (Feet): 5 Height (Inches): 3.00 Weight (Pounds): 129 General Appearance: no apparent distress, alert EENT: normal ENT inspection Neck: non-tender, normal alignment, supple Cardiovascular: normal peripheral pulses, normal rate, regular rhythm Respiratory/Chest: chest wall non-tender, lungs clear, normal breath sounds Abdomen: normal bowel sounds, non tender, soft Extremities: normal range of motion, non-tender Neurologic: alert, responsive Skin: warm/dry Lymphatic: normal anterior cervical (L), normal anterior cervical (R), normal posterior cervical (L), normal posterior cervical (R), normal submandibular (L) , normal submandibular (R), normal supraclavicular (L), normal supraclavicular ( R), normal axillary (L), normal axillary (R), normal inguinal (L), normal inguinal (R), normal other Keith Noyola MD Nov 10, 2017 16:54
[2017-11-10] MEDS ORDERED: Warfarin Sodium 5mg ORAL ONE (17:00)
[2017-11-10] MEDS ORDERED: Tylenol #3 tab (300mg/30mg) ORAL PRN (17:00)
--- NOTE | 2017-11-10 17:30 | Consultation ---
DATE OF CONSULTATION: 11/09/2017 INFECTIOUS DISEASE CONSULTATION CONSULTING PHYSICIAN: Ney Hall M.D. REQUESTING PHYSICIAN: Dr. Keith Noyola. REASON FOR CONSULTATION: Right lower lobe pneumonia with fever. Recommendation for antibiotics treatment. HISTORY OF PRESENT ILLNESS: The patient is a 77-year-old Farsi-speaker female with past medical history of hypertension, DC, coronary artery disease, CHF, and GERD, was sent from half-way facility for left hip pain and leg pain. The patient had a x-ray of the pelvic area, which showed severe degenerative changes in the left hip joint, but no evidence of fracture. Unfortunately, CT scan was not done due to nonavailability at this point. She also had a chest x-ray in the emergency room as part of her workup, which revealed right lower lobe infiltration. She also had fever of 100.1, so she received cefepime in the emergency room and Infectious Disease consultation was requested for antibiotics treatment and further management. As of note, the patient is a Farsi speaker and could not provide good history. History was mainly obtained from the medical records and the nursing staff. REVIEW OF SYSTEMS: Unable to obtain. The patient is a Farsi speaker and could not provide good history at this point. PAST MEDICAL HISTORY: Significant for hypertension, DC, coronary artery disease, CHF, and GERD. PAST SURGICAL HISTORY: She had a pacemaker placement. SOCIAL HISTORY: The patient lives at half-way facility. Denied using any drugs, tobacco, or alcohol. She is unemployed. FAMILY HISTORY: Unable to obtain at this point. ALLERGIES: She has no known drug allergy. MEDICATIONS: She received cefepime 1 g every 12 hours in the emergency room. LABORATORY DATA: Labs showed white count of 8000, hemoglobin of 13.8, and platelet count of 220,000. BUN of 29, creatinine of 0.6. AST of 82, ALT of 24, and alkaline phosphatase of 63. Urinalysis showed negative nitrite, negative leukocyte esterase, wbc's 0 to 2, and few bacteria. IMAGING: Chest x-ray showed hazy right lateral basilar infiltrates. 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 There is a questionable pseudoacetabulum above the [place] acetabulum, but the femoral neck does not articulate with finding or consistent with prior girdle stone type arthroplasty. The femoral neck may be dislocated from the pseudoacetabulum, which could explain the acute finding. Extensive abnormality of the left hip finding consistent with old avascular necrosis and extensive secondary degenerative change. PHYSICAL EXAMINATION: VITAL SIGNS: Temperature 100.1, pulse 91, respirations 18, and blood pressure 150/68. Pulse ox 95% on room air. GENERAL: Elderly female, lying in bed, awake, alert, and oriented, not in distress. HEENT: Normocephalic and atraumatic. Pupils reactive to light. Moist oral mucosa. No exudate or thrush. NECK: Supple. No lymphadenopathy. CARDIOVASCULAR: Regular rate and rhythm. No murmur or gallop. LUNGS: She had crackles and diminished breathing sound on the right lower lobe. No wheezing or rhonchi. ABDOMEN: Soft, nontender, and nondistended. Normal bowel sounds. No hepatosplenomegaly. No ascites. EXTREMITIES: She had swelling in both lower extremity with tenderness on the left hip area and decreased range of motion. ASSESSMENT AND RECOMMENDATION: 1. Right lower lobe pneumonia with fever and infiltrates on chest x-ray. We will send sputum culture and start Zosyn empiric coverage. Monitor chest x-ray. Rule out aspiration. 2. Left hip pain due to severe degenerative joint disease and avascular necrosis. Continue pain management. Consult Ortho if needed. 3. Fever due to the above. Continue antibiotics and Tylenol as needed. Thank you for the consult. ID will continue to follow. Please feel free to call with any question. Ney Hall M.D. DR: JEANA JOB#: [id number] CC:
[2017-11-10 20:00] VITALS: BP 134/66
[2017-11-10] MEDS ORDERED: Latanoprost 0.005% Opth 2.5ml Soln BOTH EYES SCH (21:00)
[2017-11-11] VITALS: BP 138/66
[2017-11-11 04:00] VITALS: BP 140/72
[2017-11-11] MEDS: Piperacillin/Tazobactam 3.375 GM in D5W 110 ML IVPB SCH ×3 (06:04→21:55)
--- NOTE | 2017-11-11 06:45 | History and Physical Report ---
DATE OF ADMISSION: 11/09/2017 CHIEF COMPLAINT: Left hip pain and fever at the assisted living. HISTORY OF PRESENT ILLNESS: This is a 77-year-old female, who was brought in from the Assisted Living [facility] for a complaint of left hip pain and fever for the past 2 days prior to the admission. The patient denied any recent fall at the assisted living. The patient slowly stopped walking for the past two days. She also had fever up to 101, two days prior to admission. She denies any coughing or shortness of breath. Her chest x-ray in the emergency room showed possible infiltrates with pneumonia. PAST MEDICAL HISTORY: Includes a history of congestive heart failure, hypertension, hypothyroid, hyperlipidemia, and atrial fibrillation with severe osteoarthritis of the hips, and neuropathy with chronic constipation. PAST SURGICAL HISTORY: History of right hip surgery ALLERGIES: No known drug allergies. FAMILY HISTORY: Noncontributory. REVIEW OF SYSTEMS: Negative except for history of present illness. PHYSICAL EXAMINATION: VITAL SIGNS: Temperature 100.1, pulse 91, respiration 18, blood pressure 150/68, and O2 saturation 95% on room air. GENERAL APPEARANCE: Alert and oriented x3. HEENT: Normocephalic and normochromic. Extraocular muscles intact. Throat is clear. NECK: Supple. No lymphadenopathy. LUNGS: Clear to auscultation bilaterally. No rales or rhonchi is noticed in the exam. CARDIOVASCULAR SYSTEM: Regular rate and rhythm. No murmur. No gallop. GASTROINTESTINAL: Soft, nontender, and nondistended. Positive bowel sounds. EXTREMITIES: Positive tenderness over both hips and radiating to her leg. No edema, cyanosis, or clubbing. NEUROLOGIC: Alert and oriented x3. Respond to commands. No gross motor or sensory deficits. SKIN: No rash. LABORATORY AND DIAGNOSTIC DATA: Includes WBC 8.0, hemoglobin 13.8, hematocrit 40.5, platelet count 220,000, neutrophils 75, and lymphocytes 13.5. Chemistry includes a sodium 135, potassium 5.4, chloride of 105, BUN 29, and creatinine 0.6. Calcium is 7.2. AST 82 and ALT 24. Troponin is 0.004. Albumin 2.6. PT is 27, INR 2.7, and PTT 41. Urine showed +2 blood, 5 to 10 rbc's, and many squamous epithelial cells, and few bacteria. Digoxin is 1.3. Chest x-ray showed questionable right lateral basilar infiltrate. X-ray of ankle showed no acute bony trauma. X-ray of the hip showed marked abnormal left hip joint with avascular necrosis with secondary degenerative changes and severe degenerative remodeling of the left hip. IMPRESSION: 1. Hip deformity with bilateral hip pain. The patient also will be seen by ortho for evaluation of both hips. 2. Fever most likely due to pneumonia. We will start the patient on intravenous antibiotic Zosyn and have ID evaluate the patient as well. 3. Hypertension, hyperlipidemia, congestive heart failure, and neuropathy, atrial fibrillation and hypothyroidism. PLAN: The patient will be admitted for a minimum of two-night stay for the above diagnoses. Keith Noyola M.D. DR: HONG JOB#: [id number] CC: WILDER
[2017-11-11 08:00] VITALS: BP 122/61
[2017-11-11 08:51] LABS: INR 2.8 (0.9-1.1)
[2017-11-11] MEDS: Magnesium Oxide 400mg tab ORAL SCH (08:55)
[2017-11-11] MEDS: Digoxin 0.125mg tab ORAL SCH (08:56)
[2017-11-11] MEDS: Furosemide 40mg tab ORAL SCH (08:56)
[2017-11-11] MEDS: Calcium Carbonate 500mg w/Vit D 200iu tab PO SCH (08:56)
[2017-11-11] MEDS: Docusate 250mg cap ORAL SCH (08:56)
[2017-11-11] MEDS: Atorvastatin 20mg tab ORAL SCH (08:57)
[2017-11-11] MEDS: Metoprolol Succinate XL 50mg tab ORAL SCH (08:57)
[2017-11-11] MEDS: Timolol 0.5% Op Soln 2.5ml BOTH EYES SCH (09:05)
[2017-11-11 12:00] VITALS: BP 138/69
[2017-11-11] MEDS ORDERED: Acetaminophen 500mg (ES) tab ORAL PRN (12:54)
[2017-11-11] MEDS ORDERED: Tylenol #3 tab (300mg/30mg) ORAL PRN (12:54)
[2017-11-11] MEDS ORDERED: traMADol 50mg tab ORAL PRN ×2 (12:57→13:00)
[2017-11-11 16:00] VITALS: BP 144/66
[2017-11-11] MEDS ORDERED: WARFARIN SOD ORAL ONE ×2 (17:00)
--- NOTE | 2017-11-11 17:07 | Infectious Diseases Prog Note ---
Assessment/Plan Problems: (1) RLL pneumonia Assessment & Plan: with fever and infiltrates on CXR, continue zosyn empirically , monitor cultures (2) Left hip pain Assessment & Plan: due to severe DJD , continue pain meds , PT/OT eval (3) Fever Assessment & Plan: due to the above , continue antibiotics and tylenol Subjective Constitutional: Reports: no symptoms HEENT: Reports: no symptoms Respiratory: Reports: no symptoms Breasts: Reports: no symptoms Cardiovascular: Reports: no symptoms Gastrointestinal/Abdominal: Reports: no symptoms Genitourinary: Reports: no symptoms Neurologic: Reports: no symptoms Psychiatric: Reports: no symptoms Skin: Reports: no symptoms Endocrine: Reports: no symptoms Hematologic: Reports: no symptoms Musculoskeletal: Reports: pain, stiffness - left leg and hip Allergies: Coded Allergies: No Known Allergies (Unverified , 11/09/17) Subjective she is more awake and comfortable Objective Vital Signs Last 24 Hour Vital Signs Date Time Temp Pulse Resp B/P (MAP) Pulse Ox O2 Delivery O2 Flow Rate FiO2 11/11/17 16:00 98.2 62 18 144/66 (92) 96 98.2 62 11/11/17 12:00 98.1 60 20 138/69 (92) 95 98.1 11/11/17 09:00 Room Air 11/11/17 08:57 75 122/61 11/11/17 08:56 75 11/11/17 08:56 75 122/61 11/11/17 08:00 65 11/11/17 08:00 98.0 75 20 122/61 (81) 98 98.0 11/11/17 04:00 61 11/11/17 04:00 96.6 59 20 140/72 (94) 96 96.6 11/11/17 00:00 97.7 61 19 138/66 (90) 95 97.7 11/11/17 00:00 57 11/10/17 21:00 Room Air 11/10/17 20:00 61 11/10/17 20:00 97.5 61 19 134/66 (88) 93 97.5 11/10/17 17:59 97.7 11/10/17 17:29 97.7 Height (Feet): 5 Height (Inches): 3.00 Weight (Pounds): 129 General Appearance: WD/WN, no acute distress HEENT: normocephalic, atraumatic, anicteric, mucous membranes moist, PERRL Respiratory/Chest: chest wall non-tender, no respiratory distress, no accessory muscle use, decreased breath sounds, crackles/rales Cardiovascular: normal peripheral pulses, normal rate, regular rhythm, no gallop/murmur, no JVD Abdomen: normal bowel sounds, soft, non tender, no organomegaly, non distended , no mass, no scars Genitourinary: normal external genitalia Extremities: no cyanosis, no clubbing Skin: no rash, no lesions, no ulcers Neurologic/Psychiatric: alert, oriented x 3, responsive Lymphatic: no neck adenopathy, no groin adenopathy Musculoskeletal: normal muscle bulk, no effusion Microbiology Date/Time Source Procedure Growth Status 11/09/17 15:30 Blood Blood Culture - Preliminary NO GROWTH AFTER 24 HOURS Resulted 11/09/17 15:15 Blood Blood Culture - Preliminary NO GROWTH AFTER 24 HOURS Resulted 11/09/17 23:30 Rectum Received Laboratory Tests Test 11/11/17 08:23 Prothrombin Time 27.9 SEC (9.30-11.50) H Prothromb Time International Ratio 2.8 (0.9-1.1) H Current Medications Medications (Trade) Dose Ordered Sig/Jorge Luis Route PRN Reason Start Time Stop Time Status Last Admin Dose Admin Acetaminophen (Tylenol) 500 mg Q6H PRN ORAL Mild Pain/Temp > 100.5 11/11/17 12:54 12/10/17 12:53 Acetaminophen/ Codeine Phosphate (Tylenol #3) 2 tab Q6H PRN ORAL Severe Pain (Pain Scale 7-10) 11/11/17 12:54 11/17/17 12:53 Amlodipine Besylate (Norvasc) 5 mg DAILY ORAL 11/12/17 09:00 12/10/17 08:59 Atorvastatin Calcium (Lipitor) 20 mg DAILY ORAL 11/12/17 09:00 12/10/17 08:59 Calcium Carbonate (OsCal D) 1 tab DAILY PO 11/12/17 09:00 12/10/17 08:59 Digoxin (Lanoxin) 0.125 mg DAILY ORAL 11/12/17 09:00 12/10/17 08:59 Docusate Sodium (Colace) 250 mg DAILY ORAL 11/12/17 09:00 12/10/17 08:59 Fish Oil (Fish Oil) 1,000 mg BID ORAL 11/11/17 18:00 12/10/17 08:59 Furosemide (Lasix) 20 mg QHS ORAL 11/11/17 21:00 12/10/17 01:59 Furosemide (Lasix) 40 mg DAILY ORAL 11/12/17 09:00 12/10/17 08:59 Gabapentin (Neurontin) 100 mg QHS ORAL 11/11/17 21:00 12/10/17 20:59 Gabapentin (Neurontin) 300 mg THREE TIMES A DAY ORAL 11/11/17 13:00 12/10/17 08:59 11/11/17 13:52 Latanoprost (Xalatan) 1 drop BEDTIME BOTH EYES 11/11/17 21:00 12/10/17 20:59 Levothyroxine Sodium (Synthroid) 88 mcg DAILY@0630 ORAL 11/12/17 06:30 12/10/17 06:29 Magnesium Oxide (Mag-Ox 400mg) 400 mg DAILY ORAL 11/12/17 09:00 12/10/17 08:59 Metoprolol Succinate (Toprol XL) 50 mg DAILY ORAL 11/12/17 09:00 12/10/17 08:59 Pantoprazole (Protonix) 40 mg DAILY ORAL 11/12/17 09:00 12/10/17 08:59 Piperacillin Sod/ Tazobactam Sod 3.375 gm/Dextrose 110 ml @ 27.5 mls/hr EVERY 8 HOURS IVPB 11/11/17 14:00 11/16/17 13:59 11/11/17 13:53 Potassium Chloride (K-Dur) 20 meq DAILY ORAL 11/12/17 09:00 12/10/17 08:59 Timolol Maleate (Timoptic 0.5% Op Soln) 1 drop DAILY BOTH EYES 11/12/17 09:00 12/10/17 08:59 Tramadol HCl (Ultram) 50 mg Q8H PRN ORAL For Moderate Pain 11/11/17 13:00 11/17/17 12:56 Warfarin Sodium (Coumadin per pharmacy) 1 ea DAILY PRN MISC Per rx protocol 11/11/17 12:57 12/11/17 12:56 Ney Hall M.D. Nov 11, 2017 17:07
--- NOTE | 2017-11-11 18:34 | General Progress Note ---
Assessment/Plan Status: stable Assessment/Plan 1. bilateral hip pain - increase tylenol # 3 two po q 8 hrs prn. PT and OT eval and txt done. 2. pneumonia - cont IV abx. 3. HTN - cont norvasc 5 mg daily and toprol XL 50 mg daily. 4. CHF - on dig 125 mcg daily and lasix 20 mg q am and 40 mg q pm 5. A fib - cont coumadin. no acute DVT by u/s 6. HLD - cont crestor 5 mg one po qhs. 7. Neuropathy - stable. 8. Hypothyroidism - cont levothyroxine 0.88 mg daily 9. Generalized weakness - cont PT and OT eval and txt. D/C planning to rehab in 1-2 days Subjective Date patient seen: Nov 11, 2017 Time patient seen: 09:15 Constitutional: Reports: weakness HEENT: Reports: no symptoms Cardiovascular: Reports: no symptoms Respiratory: Reports: no symptoms Gastrointestinal/Abdominal: Reports: no symptoms Genitourinary: Reports: no symptoms Neurologic/Psychiatric: Reports: no symptoms Endocrine: Reports: no symptoms Hematologic/Lymphatic: Reports: no symptoms Allergies: Coded Allergies: No Known Allergies (Unverified , 11/09/17) Subjective Patient states her hip pain is better controlled now. Physical therapy evaluated the patient and she was only able to stand today. afebrile today. Objective Last 24 Hour Vital Signs Date Time Temp Pulse Resp B/P (MAP) Pulse Ox O2 Delivery O2 Flow Rate FiO2 11/11/17 16:00 98.2 62 18 144/66 (92) 96 98.2 62 11/11/17 12:00 98.1 60 20 138/69 (92) 95 98.1 11/11/17 09:00 Room Air 11/11/17 08:57 75 122/61 11/11/17 08:56 75 11/11/17 08:56 75 122/61 11/11/17 08:00 65 11/11/17 08:00 98.0 75 20 122/61 (81) 98 98.0 11/11/17 04:00 61 11/11/17 04:00 96.6 59 20 140/72 (94) 96 96.6 11/11/17 00:00 97.7 61 19 138/66 (90) 95 97.7 11/11/17 00:00 57 11/10/17 21:00 Room Air 11/10/17 20:00 61 11/10/17 20:00 97.5 61 19 134/66 (88) 93 97.5 Intake and Output 11/10/17 11/11/17 19:00 07:00 Intake Total 560 ml Balance 560 ml Intake Oral 560 ml # Voids 2 2 Laboratory Tests 11/11/17 08:23: Prothrombin Time 27.9H, Prothromb Time International Ratio 2.8H Height (Feet): 5 Height (Inches): 3.00 Weight (Pounds): 129 General Appearance: no apparent distress, alert Neck: non-tender, normal alignment, supple Cardiovascular: normal peripheral pulses, normal rate, regular rhythm Respiratory/Chest: chest wall non-tender, lungs clear, normal breath sounds, no respiratory distress Abdomen: normal bowel sounds, non tender, soft Extremities: other - both hip tenderness Edema: no edema noted Arm (L), no edema noted Arm (R), no edema noted Leg (L), no edema noted Leg (R), no edema noted Pedal (L), no edema noted Pedal (R), no edema noted Generalized Neurologic: no motor/sensory deficits, alert, responsive Skin: warm/dry Lymphatic: normal anterior cervical (L), normal anterior cervical (R), normal posterior cervical (L), normal posterior cervical (R), normal submandibular (L) , normal submandibular (R), normal supraclavicular (L), normal supraclavicular ( R), normal axillary (L), normal axillary (R), normal inguinal (L), normal inguinal (R), normal other Keith Noyola MD Nov 11, 2017 18:34
[2017-11-11 20:00] VITALS: BP 117/53
[2017-11-11] MEDS ORDERED: Latanoprost 0.005% Opth 2.5ml Soln BOTH EYES SCH (21:00)
[2017-11-12 00:14] VITALS: BP 125/69
[2017-11-12 04:00] VITALS: BP 123/52
--- NOTE | 2017-11-12 05:30 | Consultation ---
DATE OF CONSULTATION: ORTHOPEDIC CONSULTATION CONSULTING PHYSICIAN: Pranay Falk M.D. REASON FOR CONSULTATION: Orthopedic consult was called for concern of left hip pain. HISTORY OF PRESENT ILLNESS: The patient is a pleasant 77-year-old Farsi speaking patient, who per history fell at her assisted living facility and complained of left-sided hip pain. She was admitted to [facility] ER where she was noted to have fever as well as left-sided hip pain. She has been admitted, started on antibiotics, and orthopedics consult has been called. Preliminary x-rays were done in the ER yesterday. The right hip is noted to have a prior girdle stone procedure and the left hip has marked degenerative changes and abnormalities including shallow acetabulum and flattened femoral head. Fracture cannot be ruled out, and currently, the patient is going to PT for hip and pelvis again. The patient does complain of left-sided hip pain with radiating pain to the left leg. PAST MEDICAL HISTORY: Is obtained from the chart and noted that the patient has hypertension, history of myocardial infarction, coronary artery disease, and congestive heart failure as well as gastroesophageal reflux disease. PAST SURGICAL HISTORY: She has a pacemaker. ALLERGIES: No known drug allergies. SOCIAL HISTORY: She does not smoke or drink. She is a skilled nursing resident and per chart, does ambulate on her own. PHYSICAL EXAM: She is a very pleasant woman. She is seen in bed. She is Farsi speaking and difficult to get the answer for questions; however, she is alert. She does not appear to be in any distress. On palpation of the left hip, the patient does grimace in pain. She emotions that the pain starts in the hip that radiates down to the left leg. There is no obvious leg swelling, skin breakdown, erythema, or signs of infection. She is neurovascularly intact. She is wiggling her toes and moving her ankles up and down. Any movement of the hip elicits pain. X-RAY: X-rays were reviewed. Again, there is evidence of prior Girdlestone procedure on the right hip with superior acetabulum on the left hip as marked degenerative changes with a very shallow acetabulum and a very flattened eroded femoral head. Fracture is difficult to rule out. IMPRESSION: 1. 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 2. Left hip acute pain and marked abnormality on x-rays. CT scan will be obtained. DISCUSSION: At this time, I discussed with the patient and nursing, my findings. I do recommend the hip and pelvis CT scan. The patient is currently going down for that which is appropriate. We will follow up on her CT to evaluate for any fracture. Once CT is available here, we will have further recommendations for her. Thank you for allowing me to participate in the care of this patient. If there are any additional questions or concerns, please do not hesitate to . Thank you. Pranay Falk M.D. Sylvester Jackson DR: SANDHYA JOB#: [id number] CC:
[2017-11-12] MEDS: Piperacillin/Tazobactam 3.375 GM in D5W 110 ML IVPB SCH (05:55)
[2017-11-12 08:00] VITALS: BP 119/59
[2017-11-12] MEDS ORDERED: Timolol 0.5% Op Soln 2.5ml BOTH EYES SCH (09:00)
[2017-11-12] MEDS ORDERED: Metoprolol Succinate XL 50mg tab ORAL SCH (09:00)
[2017-11-12] MEDS ORDERED: Furosemide 40mg tab ORAL SCH (09:00)
[2017-11-12] MEDS ORDERED: Digoxin 0.125mg tab ORAL SCH (09:00)
[2017-11-12] MEDS ORDERED: Calcium Carbonate 500mg w/Vit D 200iu tab PO SCH (09:00)
[2017-11-12] MEDS ORDERED: Atorvastatin 20mg tab ORAL SCH (09:00)
[2017-11-12] MEDS ORDERED: Docusate 250mg cap ORAL SCH (09:00)
[2017-11-12] MEDS ORDERED: Magnesium Oxide 400mg tab ORAL SCH (09:00)
--- NOTE | 2017-11-12 09:06 | General Progress Note ---
Assessment/Plan Status: stable Assessment/Plan 1. bilateral hip pain - cont tylenol # 3 two po q 8 hrs prn. PT and OT at [facility]. D/C today. 2. pneumonia - cont IV abx. 3. HTN - cont norvasc 5 mg daily and toprol XL 50 mg daily. 4. CHF - on dig 125 mcg daily and lasix 20 mg q am and 40 mg q pm 5. A fib - cont coumadin. no acute DVT by u/s 6. HLD - cont crestor 5 mg one po qhs. 7. Neuropathy - stable. 8. Hypothyroidism - cont levothyroxine 0.88 mg daily 9. Generalized weakness - cont PT and OT eval and txt. D/C planning to rehab today. Subjective Date patient seen: Nov 12, 2017 Time patient seen: 09:00 Constitutional: Reports: weakness HEENT: Reports: no symptoms Cardiovascular: Reports: no symptoms Respiratory: Reports: no symptoms Gastrointestinal/Abdominal: Reports: no symptoms Genitourinary: Reports: no symptoms Neurologic/Psychiatric: Reports: no symptoms Endocrine: Reports: no symptoms Hematologic/Lymphatic: Reports: no symptoms Allergies: Coded Allergies: No Known Allergies (Unverified , 11/09/17) Subjective Patient states her hip pain is better controlled now. afebrile today. Objective Last 24 Hour Vital Signs Date Time Temp Pulse Resp B/P (MAP) Pulse Ox O2 Delivery O2 Flow Rate FiO2 11/12/17 08:00 98.3 62 18 119/59 (79) 94 98.3 11/12/17 04:00 97.7 60 18 123/52 (75) 96 97.7 11/12/17 00:14 97.9 60 18 125/69 (87) 94 97.9 11/11/17 21:09 Room Air 11/11/17 20:00 98.1 60 18 117/53 (74) 95 98.1 11/11/17 16:00 98.2 62 18 144/66 (92) 96 98.2 62 11/11/17 12:00 98.1 60 20 138/69 (92) 95 98.1 Intake and Output 11/11/17 11/12/17 19:00 07:00 Intake Total 917.5 ml 590.0 ml Balance 917.5 ml 590.0 ml Intake Oral 780 ml 480 ml IV Total 137.5 ml 110.0 ml # Voids 3 4 Laboratory Tests 11/12/17 07:50: Prothrombin Time [Pending], Prothromb Time International Ratio [Pending] Height (Feet): 5 Height (Inches): 3.00 Weight (Pounds): 129 General Appearance: no apparent distress, alert EENT: normal ENT inspection Neck: non-tender, supple Cardiovascular: normal peripheral pulses, normal rate, regular rhythm Respiratory/Chest: chest wall non-tender, lungs clear, normal breath sounds Abdomen: normal bowel sounds, non tender, soft Extremities: normal range of motion, non-tender Edema: no edema noted Arm (L), no edema noted Arm (R), no edema noted Leg (L), no edema noted Leg (R), no edema noted Pedal (L), no edema noted Pedal (R), no edema noted Generalized Neurologic: no motor/sensory deficits, alert, responsive Skin: warm/dry Lymphatic: normal anterior cervical (L), normal anterior cervical (R), normal posterior cervical (L), normal posterior cervical (R), normal submandibular (L) , normal submandibular (R), normal supraclavicular (L), normal supraclavicular ( R), normal axillary (L), normal axillary (R), normal inguinal (L), normal inguinal (R), normal other Keith Noyola MD Nov 12, 2017 09:06
[2017-11-12 12:00] VITALS: BP 102/55
[2017-11-12] MEDS ORDERED: ZOSYN 3.373.375 GM/1 IVPB (12:02)
[2017-11-12] MEDS ORDERED: TYLENOL WITH C1 EACH ORAL (12:02)
[2017-11-12] MEDS ORDERED: NS 275ml ONE (15:49)
[2017-11-12] MEDS ORDERED: Tubing IV Secondary IV ONE (15:49)
--- NOTE | 2017-11-12 15:49 | Infectious Diseases Prog Note ---
Assessment/Plan Problems: (1) RLL pneumonia Assessment & Plan: with fever and infiltrates on CXR, continue zosyn empirically for total of 7 days , monitor cultures (2) Left hip pain Assessment & Plan: due to severe DJD , continue pain meds , PT/OT eval (3) Fever Assessment & Plan: due to the above , continue antibiotics and tylenol Subjective Constitutional: Reports: no symptoms HEENT: Reports: no symptoms Respiratory: Reports: no symptoms Breasts: Reports: no symptoms Cardiovascular: Reports: no symptoms Gastrointestinal/Abdominal: Reports: no symptoms Genitourinary: Reports: no symptoms Neurologic: Reports: no symptoms Psychiatric: Reports: no symptoms Skin: Reports: no symptoms Endocrine: Reports: no symptoms Hematologic: Reports: no symptoms Musculoskeletal: Reports: pain, stiffness Allergies: Coded Allergies: No Known Allergies (Unverified , 11/09/17) Subjective she is awake and comfortable , still has left leg pain, was able to walk to the bathroom with cane Objective Vital Signs Last 24 Hour Vital Signs Date Time Temp Pulse Resp B/P (MAP) Pulse Ox O2 Delivery O2 Flow Rate FiO2 11/12/17 12:00 98.0 61 18 102/55 (71) 94 98.0 11/12/17 10:00 98.3 11/12/17 09:31 62 119/59 11/12/17 09:31 62 11/12/17 09:31 62 119/59 11/12/17 09:30 98.3 11/12/17 09:00 Room Air 11/12/17 08:00 98.3 62 18 119/59 (79) 94 98.3 11/12/17 04:00 97.7 60 18 123/52 (75) 96 97.7 11/12/17 00:14 97.9 60 18 125/69 (87) 94 97.9 11/11/17 21:09 Room Air 11/11/17 20:00 98.1 60 18 117/53 (74) 95 98.1 11/11/17 16:00 98.2 62 18 144/66 (92) 96 98.2 62 Height (Feet): 5 Height (Inches): 3.00 Weight (Pounds): 129 General Appearance: WD/WN, no acute distress HEENT: normocephalic, atraumatic, anicteric, mucous membranes moist, PERRL, pharynx normal, supple, no JVD Respiratory/Chest: chest wall non-tender, normal breath sounds, no respiratory distress, decreased breath sounds, crackles/rales Cardiovascular: normal peripheral pulses, normal rate, regular rhythm, no gallop/murmur, no JVD Abdomen: normal bowel sounds, soft, non tender, no organomegaly, non distended , no mass, no scars Extremities: no cyanosis, no clubbing, other - left leg pain with hip pain, decreased range of motion Skin: no rash, no lesions, no ulcers Neurologic/Psychiatric: alert, oriented x 3 Lymphatic: no neck adenopathy, no groin adenopathy Musculoskeletal: normal muscle bulk, no effusion Microbiology Date/Time Source Procedure Growth Status 11/09/17 23:30 Nasal Nares MRSA Culture - Final NO METHICILLIN RESISTANT STAPH AUREUS... Complete 11/09/17 23:30 Rectum - Final NO CARBAPENEM-RESISTANT ENTEROBACTERI... Complete 11/09/17 23:30 Rectum VRE Culture - Final NO VANCOMYCIN RESISTANT ENTEROCOCCUS ... Complete Laboratory Tests Test 11/12/17 07:50 Prothrombin Time 20.2 SEC (9.30-11.50) H Prothromb Time International Ratio 2.0 (0.9-1.1) H Current Medications Medications (Trade) Dose Ordered Sig/Jorge Luis Route PRN Reason Start Time Stop Time Status Last Admin Dose Admin Acetaminophen (Tylenol) 500 mg Q6H PRN ORAL Mild Pain/Temp > 100.5 11/11/17 12:54 12/10/17 12:53 Acetaminophen/ Codeine Phosphate (Tylenol #3) 2 tab Q6H PRN ORAL Severe Pain (Pain Scale 7-10) 11/11/17 12:54 11/17/17 12:53 Amlodipine Besylate (Norvasc) 5 mg DAILY ORAL 11/12/17 09:00 12/10/17 08:59 11/12/17 09:31 Atorvastatin Calcium (Lipitor) 20 mg DAILY ORAL 11/12/17 09:00 12/10/17 08:59 11/12/17 09:32 Calcium Carbonate (OsCal D) 1 tab DAILY PO 11/12/17 09:00 12/10/17 08:59 11/12/17 09:29 Digoxin (Lanoxin) 0.125 mg DAILY ORAL 11/12/17 09:00 12/10/17 08:59 11/12/17 09:31 Docusate Sodium (Colace) 250 mg DAILY ORAL 11/12/17 09:00 12/10/17 08:59 11/12/17 09:31 Fish Oil (Fish Oil) 1,000 mg BID ORAL 11/11/17 18:00 12/10/17 08:59 11/12/17 09:29 Furosemide (Lasix) 20 mg QHS ORAL 11/11/17 21:00 12/10/17 01:59 11/11/17 20:18 Furosemide (Lasix) 40 mg DAILY ORAL 11/12/17 09:00 12/10/17 08:59 11/12/17 09:29 Gabapentin (Neurontin) 100 mg QHS ORAL 11/11/17 21:00 12/10/17 20:59 11/11/17 20:18 Gabapentin (Neurontin) 300 mg THREE TIMES A DAY ORAL 11/11/17 13:00 12/10/17 08:59 11/12/17 13:25 Latanoprost (Xalatan) 1 drop BEDTIME BOTH EYES 11/11/17 21:00 12/10/17 20:59 11/11/17 20:20 Levothyroxine Sodium (Synthroid) 88 mcg DAILY@0630 ORAL 11/12/17 06:30 12/10/17 06:29 11/12/17 05:55 Magnesium Oxide (Mag-Ox 400mg) 400 mg DAILY ORAL 11/12/17 09:00 12/10/17 08:59 11/12/17 09:31 Metoprolol Succinate (Toprol XL) 50 mg DAILY ORAL 11/12/17 09:00 12/10/17 08:59 11/12/17 09:31 Pantoprazole (Protonix) 40 mg DAILY ORAL 11/12/17 09:00 12/10/17 08:59 11/12/17 09:30 Piperacillin Sod/ Tazobactam Sod 3.375 gm/Dextrose 110 ml @ 27.5 mls/hr EVERY 8 HOURS IVPB 11/11/17 14:00 11/16/17 13:59 11/12/17 05:55 Potassium Chloride (K-Dur) 20 meq DAILY ORAL 11/12/17 09:00 12/10/17 08:59 11/12/17 09:30 Timolol Maleate (Timoptic 0.5% Op Soln) 1 drop DAILY BOTH EYES 11/12/17 09:00 12/10/17 08:59 11/12/17 09:00 Tramadol HCl (Ultram) 50 mg Q8H PRN ORAL For Moderate Pain 11/11/17 13:00 11/17/17 12:56 11/12/17 09:30 Warfarin Sodium (Coumadin per pharmacy) 1 ea DAILY PRN MISC Per rx protocol 11/11/17 12:57 12/11/17 12:56 Warfarin Sodium (Coumadin) 7 mg COUMADIN ONCE PO 11/12/17 17:00 11/12/17 17:01 11/12/17 15:43 Ney Hall M.D. Nov 12, 2017 15:49
[2017-11-12] MEDS ORDERED: WARFARIN SOD PO ONE ×2 (17:00)
--- NOTE | 2017-11-12 23:30 | Discharge Summary ---
DATE OF ADMISSION: 11/09/2017 DATE OF DISCHARGE: 11/12/2017 "NOTE: POOR AUDIO QUALITY" HOSPITAL COURSE: This is a 77-year-old [place]ese female, who was brought in from [facility] for complaint of a severe left hip pain for two days prior to admission. She also had a fever for two days with maximum temperature of 101 degrees. In the hospital, the patient's chest x-ray was consistent without infiltrate and pneumonia. The patient was started on Zosyn IV by ID. She responded well to the treatment. She also was seen by Ortho for her left hip pain and CT showed right prior Girdlestone procedure of the hip and then left hip showed marked osteoarthritis on that side. Ortho recommended medical therapy and no surgical intervention was recommended. The patient will be discharged to [facility] for further physical therapy and pain management. She also will receive IV antibiotics for six more days at the rehab. Her echo showed 50% to 55% ejection fraction with no evidence of left ventricular hypertrophy. No evidence of pericardial effusion. Chamber size within normal limit. She had focal aortic valve sclerosis with adequate cusp excursion, thickened mitral valve leaflets, and normal excursion. Pulmonic valve not well visualized. Mitral annulus and aortic root calcifications. Normal tricuspid valve structure. She also had lower extremity ultrasound that did not show any acute DVT. 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 DISCHARGE DIAGNOSES: Include, 1. Bilateral hip pain secondary to osteoarthritis. 2. Pneumonia. 3. Hypertension. 4. Questionable history of CHF. 5. Atrial Fib. 6. Hyperlipidemia. 7. Neuropathy. 8. Hypothyroidism. 9. Generalized weakness. DISCHARGE MEDICATIONS: Include, 1. Tylenol No. 3 two tabs q.6 hours p.r.n. 2. Zosyn 3.375 g IV q.8 hours for seven days. 3. Acetaminophen 500 mg two b.i.d. 4. Amlodipine 5 mg daily. 5. Lumigan 2.5 one drop to both eyes at night. 6. Calcium carbonate one tab p.o. daily. 7. Digoxin 125 mcg daily. 8. 9. Colace 250 mg daily. 10. Nexium 40 mg q.a.m. 11. Premarin 30 g via vaginal area twice a week. 12. Lasix 20 mg nightly. 13. Lasix 40 mg q.a.m. 14. Gabapentin 300 mg daily. 15. 2 g daily. 16. Levothyroxine 0.88 mcg daily. 17. Magnesium oxide 500 mg daily. 18. Metoprolol succinate 50 mg daily. 19. Pepcid 25 mg daily. 20. Potassium chloride 20 mEq daily. 21. Crestor 5 mg nightly. 22. Timolol 2.5 mL one drop daily. 23. Ultram 50 mg q.8 hours p.r.n. 24. Warfarin 5 mg daily alternating with 5.5 mg daily. DISPOSITION: The patient will be discharged to [place] today and will be followed up at the rehab by me and in two to three weeks, we will transfer the patient back to the [facility] where she resides. Keith Noyola M.D. DR: MARIE JOB#: [id number] CC: WILDER
== END 2017-11-12 15:50 | DRG 553 ==
LOC: EDBD 11:30 → EMR 14:58 → 2E 15:02 → EDBEDREQ 16:38 → 3E 11-11 12:15
DX: M16.0 Bilateral primary osteoarthritis of hip (principal); J18.9 Pneumonia, unspecified organism; M87.852 Other osteonecrosis, left femur; M21.952 Unspecified acquired deformity of left thigh; I11.0 Hypertensive heart disease with heart failure; I50.9 Heart failure, unspecified; I48.91 Unspecified atrial fibrillation; E78.5 Hyperlipidemia, unspecified; G62.9 Polyneuropathy, unspecified; E03.9 Hypothyroidism, unspecified; R53.1 Weakness; I25.2 Old myocardial infarction; I25.10 Atherosclerotic heart disease of native coronary artery without angina pectoris; K21.9 Gastro-esophageal reflux disease without esophagitis; Z95.0 Presence of cardiac pacemaker; Z98.890 Other specified postprocedural states; Z86.718 Personal history of other venous thrombosis and embolism; Z79.01 Long term (current) use of anticoagulants
CPT/HCPCS: 36415; 70450; 71045; 72170; 73502; 80048; 80053; 80162; 81003; 82550; 82553; 83605; 84484; 85025; 85610; 85730; 87040; 87081; 93005; 93306; 93970; 96361; 96365; 96366; 99285; J8499

== ENCOUNTER 2018-02-09 15:27 | Emergency (ER) | payer MEDICARE, OTHER ==
[~2018-02-09] VITALS: Ht 162.6 cm; Wt 59.0 kg
[~2018-02-09 15:27] MED LIST: ACETAMINOPHEN500 M5 PO; AMLODIPINE BESYL5 MG ORAL; BENADRYL25 MG ORAL; CALTRATE 600 +1 EAC2 PO; CRESTOR10 M1 ORAL; CRESTOR10 M2 ORAL; DIGOXIN125 MCG ORAL; DOCUSATE SODIU250 MG ORAL; DOK PLUS TABLE1 EACH PO; FISH OIL CAP1000 MG ORAL; FUROSEMIDE20 M1 ORAL; FUROSEMIDE40 MG ORAL; GABAPENTIN100 MG ORAL; GABAPENTIN300 MG ORAL; ISTALOL2.5 M1 OP; LEVOTHYROXINE75 MCG ORAL; LUMIGAN2.5 ML BOTH EYES; MAGNESIUM OXID500 M1 PO; METOPROLOL SUCC50 MG ORAL; MYRBETRIQ25 MG PO; NEXIUM40 MG ORAL; POTASSIUM 25 M25 ME1 PO; POTASSIUM CHLO20 ME3 PO; PREMARIN0.625 MG VAGIN; PREMARIN42.5 GM VG; TRAMADOL HCL50 MG ORAL; TYLENOL WITH C1 EACH ORAL; VASCEPA1 GM PO; WARFARIN SODIUM1 MG ORAL; WARFARIN SODIUM5 MG ORAL; ZOSYN 3.373.375 GM/1 IVPB
--- NOTE | 2018-02-09 15:32 | NUR ---
ED Nurse Note: Pt [facility] from [facility] due to s/p Fall, unwitnessed, patient stated that hit her head 2 hrs [employer] No vomitting. NO KO. no visible abrasion/bruise
[2018-02-09] MEDS ORDERED: LORAZEPAM0.5 MG ORAL (15:40)
[2018-02-09] MEDS ORDERED: PATANOL1 DROP OD (15:40)
[2018-02-09] MEDS ORDERED: BISACODYL10 M1 RC (15:40)
[2018-02-09] MEDS ORDERED: ESTRACE42.5 GM PV (15:40)
[2018-02-09] MEDS ORDERED: VASCEPA1 GM PO (15:40)
[2018-02-09] MEDS ORDERED: ACETAZOLAMIDE500 MG ORAL (15:40)
[2018-02-09] MEDS ORDERED: COMBIGAN EYE DRO5 ML OP (15:40)
[2018-02-09] MEDS ORDERED: XALATAN2.5 ML BOTH EYES (15:40)
[2018-02-09] MEDS ORDERED: MULTIVITAMINS1 EAC2 ORAL (15:40)
--- NOTE | 2018-02-09 16:05 | Emergency Room Report ---
History of Present Illness General Chief Complaint: Multiple Trauma/Fall Source: Patient Present Illness HPI Patient presents after a fall. Allegedly there is no loss of consciousness. She hit the left side of her head and has some mild pain there. She's taking a blood thinner - coumadin. Patient sent in for CT scan of the head. She was brought by ambulance. The patient is in a [facility] facility due to dementia. She has chronic inflammation of her eyes. No fevers, chills, chest pain, palpitations, nausea, vomiting, diarrhea, dysuria , abdominal pain, shortness of breath, depression. No bruising History of diabetes, hypertension, congestive heart failure and hypothyroidism. Allergies: Coded Allergies: No Known Allergies (Unverified , 11/09/17) Patient History Past Medical History: see triage record Past Surgical History: pacemaker Social History: Denies: smoking Social History Narrative detention facility Now: No Reviewed Nursing Documentation: PMH: Agreed; PSxH: Agreed Nursing Documentation-PMH Past Medical History: No History, Except For Hx Hypertension: Yes Hx Diabetes: Yes - Type 2 Hx Cancer: No Hx Neurological Problems: No Review of Systems All Other Systems: negative except mentioned in HPI Physical Exam Vital Signs Date Time Temp Pulse Resp B/P (MAP) Pulse Ox O2 Delivery O2 Flow Rate FiO2 02/09/18 15:23 60 16 116/73 98 Room Air Sp02 EP Interpretation: reviewed, normal General Appearance: well appearing, no apparent distress, GCS 15 Head: normocephalic Eyes: bilateral eye PERRL, bilateral eye Scleral Injection, bilateral eye other - arcus ENT: moist mucus membranes Neck: full range of motion, supple, no bony tend Respiratory: chest non-tender, lungs clear, normal breath sounds, other - Pacemaker Cardiovascular #1: regular rate, rhythm, no edema Cardiovascular #2: 2+ radial (R) Gastrointestinal: normal inspection, normal bowel sounds, non tender, no mass, non-distended Genitourinary: no CVA tenderness Musculoskeletal: back normal, normal range of motion Neurologic: alert, oriented x3, motor strength/tone normal, DTRs symmetric, sensory intact, cerebellar normal, speech normal Psychiatric: mood/affect normal Skin: normal inspection, warm/dry Medical Decision Making Diagnostic Impression: Primary Impression: Head trauma Qualified Codes: S09.90XA - Unspecified injury of head, initial encounter Additional Impression: Anticoagulation adequate ER Course Patient on Coumadin presents after head injury. Differential includes contusion , bleed, concussion amongst others. Patient's neurologic exam is normal. INR and CT of the head are indicated. The patient will be given Tylenol for pain. INR is 2.5. CT of the head reveals no bleed or fracture. There are involutional changes. The patient is improved. Results were discussed with the patient and translated by her brother. The patient is stable for outpatient observation and treatment. Laboratory Tests Test 02/09/18 16:15 Prothrombin Time 25.1 SEC (9.30-11.50) H Prothrombin Time INR 2.5 (0.9-1.1) H Rhythm Strip Diag. Results EP Interpretation: yes Rhythm: NSR, no PVC's, no ectopy CT/MRI/US Diagnostic Results CT/MRI/US Diagnostic Results : Imaging Test Ordered: head Impression No bleed, fracture. Involutional changes Last Vital Signs Date Time Temp Pulse Resp B/P (MAP) Pulse Ox O2 Delivery O2 Flow Rate FiO2 02/09/18 22:15 98.2 82 16 120/74 98 Room Air Status: improved Disposition: ASSISTED LIVING Condition: Improved Scripts Acetaminophen (Tylenol) 325 Mg Tablet 650 MG ORAL Q6H PRN for Prn Pain/Headache/Temp > 101, #20 TAB 0 Refills Prov: Oren Young MD 02/09/18 Oren Young MD Feb 09, 2018 16:05
[2018-02-09 16:19] VITALS: BP 116/73
[2018-02-09 16:40] LABS: INR 2.5 (0.9-1.1)
--- NOTE | 2018-02-09 20:25 | Diagnostic Imaging Report ---
EXAM: CT Head Without Intravenous Contrast CLINICAL HISTORY: TRAUMA TECHNIQUE: Axial computed tomography images of the head/brain without intravenous contrast. CTDI is 71 mGy and DLP is 1337 mGy-cm. One or more of the following dose reduction techniques were used: automated exposure control, adjustment of the mA and/or kV according to patient size, use of iterative reconstruction technique. COMPARISON: 11/09/2017 FINDINGS: Brain: No acute intracranial abnormality. Minimal nonspecific secondary to chronic microvascular ischemia, similar to prior study. Cerebrovascular atherosclerosis. Minimal prominent CSF spaces and parenchymal volume loss. No hemorrhage. Ventricles: Unremarkable. No ventriculomegaly. Bones/joints: Unremarkable. No acute fracture. Soft tissues: Unremarkable. Sinuses: Unremarkable as visualized. No acute sinusitis. Mastoid air cells: Unremarkable as visualized. No mastoid effusion. IMPRESSION: 1. No acute intracranial abnormality. 2. Minimal chronic senescent findings above.
[2018-02-09] MEDS ORDERED: TYLENOL325 MG ORAL (20:27)
--- NOTE | 2018-02-09 21:19 | NUR ---
ED Nurse Note: attempted to call jeyson jackson Addendum: 02/09/18 at 2122 by GODWIN user is busy.
--- NOTE | 2018-02-09 21:39 | NUR ---
ED Nurse Note: 2nd attempt to call jeyson arshad. Nobody picks up. WING Ann made aware
--- NOTE | 2018-02-09 21:44 | NUR ---
ED Nurse Note: Report given to [facility] at [facility].
[2018-02-09 22:00] VITALS: BP 120/72
[2018-02-09 22:15] VITALS: BP 120/74
--- NOTE | 2018-02-09 22:15 | NUR ---
ER Nurse Note: Report given to EMS; pt and spouse left with transport back to facility. Pt VSS, no acute distress. Pt left with all belongings.
== END 2018-02-09 22:15 | disposition home or self-care (01) ==
LOC: EDBD 15:27 → EMR 16:31
DX: S09.90XA Unspecified injury of head, initial encounter (principal); Z79.01 Long term (current) use of anticoagulants; I50.9 Heart failure, unspecified; I11.0 Hypertensive heart disease with heart failure; E11.9 Type 2 diabetes mellitus without complications; E03.9 Hypothyroidism, unspecified; W19.XXXA Unspecified fall, initial encounter; Y92.9 Unspecified place or not applicable
CPT/HCPCS: 36415; 70450; 85610; 99284